=== PATIENT | male | born 1970 | race Caucasian/White ===

== ENCOUNTER 2022-04-03 17:48 | Inpatient (IN) | payer SELFPAY ==
[~2022-04-03] VITALS: Ht 180.3 cm; Wt 113.0 kg
--- NOTE | 2022-04-03 18:25 | ED Lower Extremity ---
General Stated Complaint: RT FOOT INFECTION Source: patient (TALKS NON-STOP AT GREAT LENGTH) History of Present Illness Date Seen by Provider: Apr 03, 2022 Time Seen by Provider: 18:10 Initial Comments PT ARRIVES VIA POV FROM [place] C/O WOUND TO RIGHT FOOT FOR THE LAST COUPLE OF MONTHS PT IS DIABETIC, ON ORAL MEDICATION, WITH HISTORY OF PERIPHERAL NEUROPATHY PT HAS NOT CHECKED HIS BLOOD SUGAR FOR "AWHILE NOW" --STATES HE HAD PNEUMONIA IN DECEMBER AND INTO JANUARY AND WAS ON PREDNISONE, AND SO HE STOPPED CHECKING HIS BLOOD SUGAR, "BECAUSE THAT PREDNISONE MADE IT GO TOO HIGH, SO I JUST QUIT CHECKING IT" PT ALSO HAS HISTORY OF HTN--TAKES LISINOPRIL 40 MG AND AMLODIPINE 10 MG HE HAS NOT TAKEN ANY OF HIS MEDICATIONS SINCE YESTERDAY MORNING--DOES NOT GIVE EXPLANATION TO WHY HE DIDN'T TAKE HIS MEDICATIONS HE ALSO STATES HE RAN OUT OF AMLODIPINE 2 WEEKS AGO, AND STARTED TAKING IT AGAIN THIS PAST TUESDAY. PT STATES HE LIVES IN [place], AND SEES DR. GALLARDO WITH [facility] HE WORKS IN [place] ALL WEEK AND SEES A DR. THERE ALSO HE STATES HE DID GO TO WOUND CARE IN [place] A COUPLE OF MONTHS AGO, AND IT WAS DOING BETTER, AND HAD NOT SEEN ANYONE FOR SEVERAL WEEKS THEN STATES "IT BROKE OPEN AGAIN" AFTER STEPPING ON A ROCK "A COUPLE OF WEEKS AGO" DID NOT SEEK CARE AGAIN UNTIL A WEEK AGO HE WENT TO [facility] IN [place] LAST TUESDAY, AND WAS GIVEN A SHOT OF ROCEPHIN AND GIVEN RX FOR LEVAQUIN X 7 DAYS. HE WAS ALSO GIVEN A TETANUS SHOT AT THAT TIME. HE DID NOT FOLLOW UP WITH ANYONE UNTIL TODAY STATES IT IS GETTING WORSE--WOUND IS LARGER, PAINFUL, DRAINING, AND HIS WHOLE FOOT IS RED AND SWOLLEN. HE WENT TO [facility] ER TODAY, BUT TOLD THERE WOULD BE A LONG WAIT, AND SO HE LEFT THERE WITHOUT BEING SEEN AND DROVE TO [place] AND WENT TO [facility], WHO SENT HIM HERE. HE STATES HE HAD FEVER OF 99 AT URGENT CARE--PT STATES HE WAS UNAWARE OF ANY FEVER. PT STATES HE HAD THE SAME PROBLEM WITH HIS LEFT FOOT SOMETIME LAST YEAR--ABOUT A YEAR AGO--IT HAS HEALED UP. PT HAS HAD COVID VACCINE X 2, NO FLU VACCINE. PCP: DR. GALLARDO WITH [facility]. ALSO SEES A DR IN [place], WHERE HE WORKS DURING THE WEEK. Allergies and Home Medications Allergies Coded Allergies: Sulfa (Sulfonamide Antibiotics) (Verified Allergy, Unknown, 04/03/22) doxycycline (Verified Allergy, Unknown, 04/03/22) Patient Home Medication List Home Medication List Reviewed: Yes Review of Systems Constitutional: see HPI EENTM: no symptoms reported Respiratory: no symptoms reported; No cough, No dyspnea on exertion Cardiovascular: no symptoms reported Gastrointestinal: no symptoms reported Genitourinary: no symptoms reported Musculoskeletal: see HPI Skin: see HPI Psychiatric/Neurological: See HPI, Pre-Existing Deficit (PERIPHERAL NEUROPATHY) Past [id number] Hx Patient Social History Tobacco Use?: No Smoking Status: Never a Smoker Smokeless Tobacco Frequency: Never a User Use of E-Cig and/or Vaping dev: No Use of E-Cig and/or Vaping Abraham: Never a User Substance use?: No Alcohol Use?: Yes Past Medical History Surgeries: Yes (SEE BELOW) Amputation, Orthopedic Respiratory: Yes Pneumonia Cardiac: Yes Hypertension Neurological: Yes Neuropathy Genitourinary: No Gastrointestinal: No Musculoskeletal: Yes (SKIN GRAFTS TO RIGHT HAND AND FOREARM; R 5TH FINGER AMPUTATED) Amputee Endocrine: Yes Diabetes, Non-Insulin dep HEENT: No (GLASSES) Cancer: No Psychosocial: No Integumentary: Yes (DIABETIC FOOT ULCERS; SKIN GRAFTS RIGHT HAND AND FOREARM. ) Blood Disorders: No Family Medical History SOCIAL HISTORY: -DENIES SMOKING -DENIES DRUG USE -USED TO DRINK ALCOHOL ON REGULAR BASIS, BUT FOR THE LAST 5 YEARS, NOW ONLY "OCCASIONALLY" DRINKS. 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 Physical Exam Vital Signs Vital Signs - First Documented 04/03/22 18:08 Temp 37.1 Pulse 122 Resp 20 B/P (MAP) 200/115 (143) Pulse Ox 98 O2 Delivery Room Air Capillary Refill : Height, Weight, BMI Height: '" Weight: lbs. oz. kg; BMI Method: General Appearance: WD/WN, no apparent distress, other (HAS A VERY LARGE BOTTLE OF WATER, THAT HE IS DRINKING FROM ON ARRIVAL TO ER. ) Neck: normal inspection Cardiovascular: normal peripheral pulses, no murmur, tachycardia (110-120) Respiratory: normal breath sounds, no respiratory distress, no accessory muscle use Gastrointestinal: non tender, soft Back: normal inspection, no CVA tenderness Legs: left leg normal inspection Ankles: left ankle normal inspection; right ankle swelling Feet: bilateral foot other (CALLOUS OVER LEFT FOOT--PLANTAR ASPECT OF FIRST MTP JOINT/BALL OF FOOT--NO SIGNS OF INFECTION OR SKIN BREAKDOWN AT THIS AREA. RIGHT FOOT--LARGE FULL THICKNESS ULCER TO PLANTAR ASPECT OF FOOT, AT FIRST AND SECOND MTP JOINT AREAS/BALL OF FOOT, WITH PURULENT DRAINAGE. THERE IS DIFFUSE MODERATE SWELLING AND ERYTHEMA TO ENTIRE FOOT UP TO RIGHT ANKLE. THERE ARE NO STREAKS NOTED. BOTH FEET ARE WARM AND WITH GOOD PEDAL PULSES AND GOOD CAPILLARY REFILL. THERE IS DECREASED SENSATION TO FINE TOUCH TO BOTH FEET--C/W REPORTED HISTORY OF PERIPHERAL NEUROPATHY. ) Neurologic/Tendon: normal motor functions, normal tendon functions, sensory deficit (DECREASED SENSATION TO FINE TOUCH TO BOTH FEET) Neurologic/Psychiatric: filleter II-XII nml as tested, alert, normal mood/affect, oriented x 3 Skin: warm/dry, other (RIGHT FOOT WOUND NOTED ABOVE. ) Progress/Results/Core Measures Results/Orders Lab Results Laboratory Tests Test 04/03/22 18:05 04/03/22 18:51 04/03/22 18:52 04/03/22 18:55 Range/Units White Blood Count 8.2 4.3-11.0 10^3/uL Red Blood Count 5.16 4.30-5.52 10^6/uL Hemoglobin 14.8 13.3-17.7 g/dL Hematocrit 43 40-54 % Mean Corpuscular Volume 83 80-99 fL Mean Corpuscular Hemoglobin 29 25-34 pg Mean Corpuscular Hemoglobin Concent 34 32-36 g/dL Red Cell Distribution Width 12.8 10.0-14.5 % Platelet Count 269 130-400 10^3/uL Mean Platelet Volume 10.0 9.0-12.2 fL Immature Granulocyte % (Auto) 0 % Neutrophils (%) (Auto) 72 42-75 % Lymphocytes (%) (Auto) 18 12-44 % Monocytes (%) (Auto) 8 0-12 % Eosinophils (%) (Auto) 2 0-10 % Basophils (%) (Auto) 1 0-10 % Neutrophils # (Auto) 5.8 1.8-7.8 10^3/uL Lymphocytes # (Auto) 1.5 1.0-4.0 10^3/uL Monocytes # (Auto) 0.7 0.0-1.0 10^3/uL Eosinophils # (Auto) 0.1 0.0-0.3 10^3/uL Basophils # (Auto) 0.0 0.0-0.1 10^3/uL Immature Granulocyte # (Auto) 0.0 0.0-0.1 10^3/uL Erythrocyte Sedimentation Rate 27 0-30 MM/HR Prothrombin Time 12.7 12.2-14.7 SEC INR Comment 0.9 0.8-1.4 Activated Partial Thromboplast Time 29 24-35 SEC D-Dimer 0.49 0.00-0.49 UG/ML Sodium Level 134 L 135-145 MMOL/L Potassium Level 3.6 3.6-5.0 MMOL/L Chloride Level 95 L 98-107 MMOL/L Carbon Dioxide Level 25 21-32 MMOL/L Anion Gap 14 5-14 MMOL/L Blood Urea Nitrogen 18 7-18 MG/DL Creatinine 1.20 0.60-1.30 MG/DL Estimat Glomerular Filtration Rate 72 BUN/Creatinine Ratio 15 Glucose Level 403 *H 70-105 MG/DL Lactic Acid Level 1.37 0.50-2.00 MMOL/L Calcium Level 10.2 H 8.5-10.1 MG/DL Corrected Calcium 10.0 8.5-10.1 MG/DL Magnesium Level 1.8 1.6-2.4 MG/DL Total Bilirubin 0.5 0.1-1.0 MG/DL Aspartate Amino Transf (AST/SGOT) 19 5-34 U/L Alanine Aminotransferase (ALT/SGPT) 21 0-55 U/L Alkaline Phosphatase 130 40-136 U/L Total Creatine Kinase 507 H 30-200 U/L Creatine Kinase MB 3.0 <6.6 NG/ML Myoglobin 91.5 10.0-92.0 NG/ML C-Reactive Protein High Sensitivity 10.52 H 0.00-0.50 MG/DL Total Protein 7.7 6.4-8.2 GM/DL Albumin 4.2 3.2-4.5 GM/DL Beta-Hydroxybutyrate (Chem panel) 0.18 0.00-0.27 MMOL/L Serum Alcohol < 10 <10 MG/DL Urine Color YELLOW Urine Clarity CLEAR Urine pH 6.0 5-9 Urine Specific [place] 1.015 L 1.016-1.022 Urine Protein TRACE H NEGATIVE Urine Glucose (UA) 3+ H NEGATIVE Urine Ketones NEGATIVE NEGATIVE Urine Nitrite NEGATIVE NEGATIVE Urine Bilirubin NEGATIVE NEGATIVE Urine Urobilinogen 0.2 < = 1.0 MG/DL Urine Leukocyte Esterase NEGATIVE NEGATIVE Urine RBC (Auto) 1+ H NEGATIVE Urine RBC 0-2 /HPF Urine WBC NONE /HPF Urine Squamous Epithelial Cells RARE /HPF Urine Crystals NONE /LPF Urine Bacteria NEGATIVE /HPF Urine Casts NONE /LPF Urine Mucus NEGATIVE /LPF Urine Culture Indicated NO Urine Opiates Screen NEGATIVE NEGATIVE Urine Oxycodone Screen NEGATIVE NEGATIVE Urine Methadone Screen NEGATIVE NEGATIVE Urine Propoxyphene Screen NEGATIVE NEGATIVE Urine Barbiturates Screen NEGATIVE NEGATIVE Ur Tricyclic Antidepressants Screen NEGATIVE NEGATIVE Urine Phencyclidine Screen NEGATIVE NEGATIVE Urine Amphetamines Screen NEGATIVE NEGATIVE Urine Methamphetamines Screen NEGATIVE NEGATIVE Urine Benzodiazepines Screen NEGATIVE NEGATIVE Urine Cocaine Screen NEGATIVE NEGATIVE Urine Cannabinoids Screen NEGATIVE NEGATIVE Influenza Type A (RT-PCR) Not Detected Not Detecte Influenza Type B (RT-PCR) Not Detected Not Detecte SARS-CoV-2 RNA (RT-PCR) Negative Not Detecte Glucometer 340 H 70-110 MG/DL My Orders Orders - JUNIOR VALERIO DO Accucheck Stat ONCE (04/03/22 18:20) Ed Iv/Invasive Line Start (04/03/22 18:20) Monitor-Rhythm Ecg Trace Only (04/03/22 18:20) Ct Extremity Lower Right Wo (04/03/22 18:20) Foot, Right, 3 View (04/03/22 18:20) Alcohol (04/03/22 18:20) Cbc With Automated Diff (04/03/22 18:20) Comprehensive Metabolic Panel (04/03/22 18:20) Creatine Kinase (04/03/22 18:20) Creatine Kinase Mb (04/03/22 18:20) Hs C Reactive Protein (04/03/22 18:20) Fibrin Degradation Products (04/03/22 18:20) Drug Screen Stat (Urine) (04/03/22 18:20) Lactic Acid Analyzer (04/03/22 18:20) Magnesium (04/03/22 18:20) Protime With Inr (04/03/22 18:20) Partial Thromboplastin Time (04/03/22 18:20) Ua Culture If Indicated (04/03/22 18:20) Blood Culture (04/03/22 18:20) Wound Culture (04/03/22 18:20) Erythrocyte Sedimentation Rate (04/03/22 18:20) Myoglobin Serum (04/03/22 18:20) Ed Iv/Invasive Line Start (04/03/22 18:20) Ns Iv 1000 Ml (Sodium Chloride 0.9%) (04/03/22 18:30) Covid 19 Inhouse Test (04/03/22 18:20) Sputum Culture (04/03/22 18:20) Urine Culture (04/03/22 18:20) Chest 1 View, Ap/Pa Only (04/03/22 18:20) Ed Iv/Invasive Line Start (04/03/22 18:20) Ed Iv/Invasive Line Start (04/03/22 18:20) Vital Signs Adult Sepsis Patie Q15M (04/03/22 18:20) O2 (04/03/22 18:20) Remove Rings In Anticipation O (04/03/22 18:20) Piperacillin Sodium/Tazobactam (Zosyn Vi (04/03/22 18:30) Vancomycin Injection (Vancomycin Injecti (04/03/22 18:30) Influenza A And B By Pcr (04/03/22 18:20) Isolation Central Supply Req (04/03/22 18:20) Beta Hydroxybutyrate (04/03/22 19:07) Hemoglobin A1c (04/03/22 19:07) Medications Given in ED Current Medications Medications Dose Ordered Sig/Jennifer Route Start Time Stop Time Status Last Admin Dose Admin Piperacillin Sod/ Tazobactam Sod 4.5 gm/Sodium Chloride 100 ml @ 200 mls/hr ONCE ONCE IV 04/03/22 18:30 04/03/22 18:59 DC 04/03/22 19:29 200 MLS/HR Vital Signs/I&O 04/03/22 18:08 Temp 37.1 Pulse 122 Resp 20 B/P (MAP) 200/115 (143) Pulse Ox 98 O2 Delivery Room Air Progress Progress Note : Progress Note SEPSIS PROTOCOL INITIATED COVID AND FLU TESTING DONE. WOUND CULTURE OBTAINED FROM RIGHT FOOT WOUND. VITALS ON ARRIVAL: HR 110'120, BP 200/115, RR 20, O2 SAT 98% ON ROOM AIR TEMP 37.1=98.8 ACCUCHECK ON ARRIVAL 340 GIVEN: -IV FLUIDS -ANTIBIOTICS -INSULIN FOCUS EXAM AT 1899: -SEPSIS SUSPECTED, WITH TACHCARDIA WITH HR 110-120 INITIALLY AND SOURCE OF INFECTION NO EVIDENCE OF SEVERE SEPSIS OR SEPTIC SHOCK HR AROUND 100 AT TIME OF ADMIT BP IS ACTUALLY HIGH ON ARRIVAL, IS GRADUALLY DOWN TO 167/92 AT TIME OF ADMIT, AND PT HAS NOT BEEN TAKING HIS BLOOD PRESSURE MEDICATION AT HOME. PT IS AFEBRILE HERE, WITH NORMAL WBC, NORMAL LACTIC ACID NO EVIDENCE OF DKA AT THIS TIME, HE CURRENTLY HAS NORMAL CO2 LEVEL, NORMAL ANION GAP, NORMAL LACTIC ACID, NO KETONES IN URINE, AND NORMAL BETA HYDROXYBUTYRATE. HGB A1C IS PENDING AT THIS TIME. NO EVIDENCE OF OSTEOMYELITIS OR DISCRETE ABSCESS ON CT SCAN. NO DETERIORATION IN PT'S CONDITION DURING ER STAY, AND PT VOICED NO COMPLAINTS FOR ENTIRE ER STAY NO PRIOR VISITS HERE REVIEWED ALL TEST RESULTS, NEED FOR ADMIT, AND PT IS AGREEABLE TO PLAN OF CARE. Diagnostic Imaging Comments PER RADIOLOGIST REPORTS AT 1904 CXR-- FINDINGS: The heart size, mediastinal configuration and pulmonary vascularity are within normal limits. There is no pleural effusion, pneumothorax or pneumonia. The osseous structures are unremarkable. IMPRESSION: No acute cardiopulmonary abnormality. RIGHT FOOT XRAY-- FINDINGS: The alignment is normal. There is no fracture or dislocation. Soft tissues are unremarkable. IMPRESSION: No focal abnormality in the right foot. CT RIGHT FOOT-- FINDINGS: The alignment is normal. There are mild degenerative changes. There is no fracture or dislocation. There is no lytic or sclerotic lesion. Specifically, there is no definitive CT evidence of osteomyelitis. Soft tissues are grossly unremarkable. IMPRESSION: No CT evidence of osteomyelitis. If there is high clinical concern for osteomyelitis, further evaluation with gadolinium-enhanced MRI should be considered. There is some questionable soft tissue swelling along the plantar aspect of the foot. Reviewed: Reviewed by Me Departure Communication (Admissions) 1909--SPOKE WITH DR. TORO, HOSPITALIST, ACCEPTS PT FOR ADMIT 1913--SPOKE WITH DR. COWAN FOR SURGICAL CONSULT--RE: POSSIBLE NEED FOR DEBRIDEMENT Impression Primary Impression: DIABETIC FOOT ULCER WITH CELLULITIS RIGHT FOOT Additional Impressions: POORLY CONTROLLED NON-INSULIN DEPENDENT DIABETES Poorly-controlled hypertension Non-compliance Peripheral neuropathy Sepsis Failure of outpatient treatment Disposition: ADMITTED INPATIENT Condition: Stable Admissions Decision to Admit Reason: Admit from ER (General) Decision to Admit/Date: Apr 03, 2022 Time/Decision to Admit Time: 19:10 Departure-Patient Inst. Referrals: NO,LOCAL PHYSICIAN (PCP/Family) Primary Care Physician JUNIOR VALERIO DO Apr 03, 2022 18:25
[2022-04-03] MEDS ORDERED: NS IV 1000 ML 1,000 ML IV SCH (18:30)
[2022-04-03] MEDS ORDERED: PIPERACILLIN SODIUM/TAZOBACTAM 4.5 GM in NS (IVPB) 100 ML IV ONE (18:30)
[2022-04-03 18:39] LABS: BASOPHILS % (AUTO) 1 % (0-10); EOSINOPHILS # (AUTO) 0.1 10^3/uL (0.0-0.3); EOSINOPHILS % (AUTO) 2 % (0-10); HEMATOCRIT 43 % (40-54); HEMOGLOBIN 14.8 g/dL (13.3-17.7); LYMPHOCYTES # (AUTO) 1.5 10^3/uL (1.0-4.0); LYMPHOCYTES % (AUTO) 18 % (12-44); MEAN CORPUSCULAR HEMOGLOBIN 29 pg (25-34); MEAN CORPUSCULAR HGB CONC 34 g/dL (32-36); MEAN CORPUSCULAR VOLUME 83 fL (80-99); MONOCYTES # (AUTO) 0.7 10^3/uL (0.0-1.0); MONOCYTES % (AUTO) 8 % (0-12); NEUTROPHILS # (AUTO) 5.8 10^3/uL (1.8-7.8); NEUTROPHILS % (AUTO) 72 % (42-75); PLATELET COUNT 269 10^3/uL (130-400); WHITE BLOOD COUNT 8.2 10^3/uL (4.3-11.0)
--- NOTE | 2022-04-03 18:55 | Diagnostic Imaging Report ---
INDICATION: Foot pain. FINDINGS: The heart size, mediastinal configuration and pulmonary vascularity are within normal limits. There is no pleural effusion, pneumothorax or pneumonia. The osseous structures are unremarkable. IMPRESSION: No acute cardiopulmonary abnormality. Dictated by: Dictated on workstation # [id number]
[2022-04-03 18:56] LABS: ALBUMIN 4.2 GM/DL (3.2-4.5); CHLORIDE 95 MMOL/L (98-107); FIBRIN DEGRADATION PRODUCTS 0.49 UG/ML (0.00-0.49); INR 0.9 (0.8-1.4); POTASSIUM 3.6 MMOL/L (3.6-5.0); PROTHROMBIN TIME PATIENT 12.7 SEC (12.2-14.7); SODIUM 134 MMOL/L (135-145)
--- NOTE | 2022-04-03 18:56 | Diagnostic Imaging Report ---
INDICATION: Foot pain. EXAMINATION: Three views were obtained. FINDINGS: The alignment is normal. There is no fracture or dislocation. Soft tissues are unremarkable. IMPRESSION: No focal abnormality in the right foot. Dictated by: Dictated on workstation # [id number]
[2022-04-03 18:57] LABS: CALCIUM 10.2 MG/DL (8.5-10.1)
[2022-04-03 18:59] LABS: TOTAL PROTEIN 7.7 GM/DL (6.4-8.2)
[2022-04-03 19:00] LABS: BILIRUBIN,TOTAL 0.5 MG/DL (0.1-1.0); CARBON DIOXIDE 25 MMOL/L (21-32)
[2022-04-03 19:02] LABS: ALKALINE PHOSPHATASE 130 U/L (40-136); GFR ESTIMATED 72
[2022-04-03 19:03] LABS: BILIRUBIN,URINE NEGATIVE (NEGATIVE); CLARITY,URINE CLEAR; COLOR,URINE YELLOW; GLUCOSE, URINE (UA) 3+ (NEGATIVE); KETONES,URINE NEGATIVE (NEGATIVE); LEUKOCYTE ESTERASE ,URINE NEGATIVE (NEGATIVE); NITRITE,URINE NEGATIVE (NEGATIVE); PROTEIN,URINE TRACE (NEGATIVE)
[2022-04-03 19:03] LABS: BUN/CREATININE RATIO 15
--- NOTE | 2022-04-03 19:03 | Diagnostic Imaging Report ---
PROCEDURE: CT right lower extremity without contrast. TECHNIQUE: Axially acquired CT was obtained through the right lower extremity without intravenous contrast. Coronal and sagittal reformations were also performed. Auto Exposure Controls were utilized during the CT exam to meet ALARA standards for radiation dose reduction. INDICATION: Diabetic foot ulcer. FINDINGS: The alignment is normal. There are mild degenerative changes. There is no fracture or dislocation. There is no lytic or sclerotic lesion. Specifically, there is no definitive CT evidence of osteomyelitis. Soft tissues are grossly unremarkable. IMPRESSION: No CT evidence of osteomyelitis. If there is high clinical concern for osteomyelitis, further evaluation with gadolinium-enhanced MRI should be considered. There is some questionable soft tissue swelling along the plantar aspect of the foot. Dictated by: Dictated on workstation # [id number]
[2022-04-03 19:04] LABS: GLUCOSE 403 MG/DL (70-105)
[2022-04-03 19:05] LABS: ALANINE AMINOTRANSFERASE 21 U/L (0-55)
[2022-04-03 19:06] LABS: CREATINE KINASE 507 U/L (30-200); MAGNESIUM 1.8 MG/DL (1.6-2.4)
[2022-04-03 19:09] LABS: ERYTHROCYTE SEDIMENTATION RATE 27 MM/HR (0-30)
[2022-04-03 19:10] LABS: BACTERIA,URINE NEGATIVE /HPF; RBC,URINE 0-2 /HPF; SQUAMOUS EPITHELIAL CELL,UR RARE /HPF
[2022-04-03 19:13] LABS: AMPHETAMINE SCREEN, URINE NEGATIVE (NEGATIVE); BARBITURATE SCREEN URINE NEGATIVE (NEGATIVE); BENZODIAZEPINES SCREEN URINE NEGATIVE (NEGATIVE); CANNABINOID SCREEN, URINE NEGATIVE (NEGATIVE); COCAINE SCREEN URINE NEGATIVE (NEGATIVE); METHADONE STAT NEGATIVE (NEGATIVE); OPIATE SCREEN URINE NEGATIVE (NEGATIVE); OXYCODONE STAT NEGATIVE (NEGATIVE); PROPOXYPHENE STAT NEGATIVE (NEGATIVE); TRICYCLIC ANTIDEPRESSANTS SCRE NEGATIVE (NEGATIVE)
[2022-04-03] MEDS ORDERED: inSUlin (REGULAR) HUMAN 1 UNIT/0.01 ML (CHARGE PER UNIT) IV ONE (19:30)
[2022-04-03 20:00] VITALS: BP 176/94
[2022-04-03] MEDS: VANCOMYCIN INJECTION 1,000 MG in NS (IVPB) 250 ML IV SCH ×2 (20:04→23:37)
--- NOTE | 2022-04-03 21:13 | Consultation - Surgery ---
CHARLINE BROOKS 04/03/222112: History of Present Illness History of Present Illness Patient Consulted On(ruth/time) 04/03/22 20:58 Date Seen by Provider: Apr 03, 2022 Time Seen by Provider: 08:20 History of Present Illness Mitchel Roca is a 52yo male whom presented to ED due to erythematous and edematous R. foot ulcer that has worsened in the last couple weeks. Pt visited Urgent Care and then was told to come to ED. Pt had associated pain secondary to edema on admissions, but since being admitted erythema, pain, and swelling has improved. Pt acquired a foot ulcer around last October and has been healing well until stepped on limestone rock about two weeks ago which reopened the wound. Since, pt has had drainage the past 7-8 days; Pt started Levaquin last Tuesday. Pt doesn't report any aggravating or alleviating factors. Allergies and Home Medications Allergies Coded Allergies: Sulfa (Sulfonamide Antibiotics) (Verified Allergy, Unknown, 04/03/22) doxycycline (Verified Allergy, Unknown, 04/03/22) metformin (Verified Adverse Reaction, Unknown, diarrhea, 04/04/22) Past Xguvnwg-Zzlwzl-Rchtin Hx Patient Social History Smoking Status: Former Smoker Type Used: Smokeless Tobacco Alcohol Use?: Yes Have you traveled recently?: No Surgeries History of Surgeries: Yes (SEE BELOW) Surgeries: Amputation, Orthopedic Respiratory History of Respiratory Disorde: Yes Respiratory Disorders: Pneumonia Cardiovascular History of Cardiac Disorders: Yes Cardiac Disorders: Hypertension Neurological History of Neurological Disord: Yes Neurological Disorders: Neuropathy Genitourinary History of Genitourinary Disor: No Gastrointestinal History of Gastrointestinal Di: No Musculoskeletal History of Musculoskeletal Dis: Yes (SKIN GRAFTS TO RIGHT HAND AND FOREARM; R 5TH FINGER AMPUTATED) Musculoskeletal Disorders: Amputee Endocrine History of Endocrine Disorders: Yes Endocrine Disorders: Diabetes, Non-Insulin dep HEENT History of HEENT Disorders: No (GLASSES) Cancer History of Cancer: No Psychosocial History of Psychiatric Problem: No Integumentary History of Skin or Integumenta: Yes (DIABETIC FOOT ULCERS; SKIN GRAFTS RIGHT HAND AND FOREARM. ) Blood Transfusions History of Blood Disorders: No Review of Systems-General Constitutional: No chills, No fever Respiratory: No cough, No short of breath Cardiovascular: No chest pain, No palpitations Gastrointestinal: No abdominal pain, No diarrhea, No nausea, No vomiting Skin: lesions (R. Foot Ulcer) Psychiatric/Neurological: Denies Numbness, Denies Paresthesia Physical Exam-General Problems Physical Exam Vital Signs Vital Signs - First Documented 04/03/22 18:08 Temp 37.1 Pulse 122 Resp 20 B/P (MAP) 200/115 (143) Pulse Ox 98 O2 Delivery Room Air Capillary Refill : Less Than 3 Seconds General Appearance: WD/WN, no apparent distress HEENT: PERRL/EOMI, pharynx normal Neck: non-tender, full range of motion, supple Respiratory: chest non-tender, lungs clear, normal breath sounds, no respiratory distress, no accessory muscle use Cardiovascular: regular rate, rhythm, no edema, no murmur Peripheral Pulses: 2+ Radial Pulses (R), 2+ Radial Pulses (L) Gastrointestinal: normal bowel sounds, non tender, soft Extremities: non-tender, normal inspection, no calf tenderness, pedal edema, other (Erythematous R. Diabetic Foot Ulcer; Surrounding Calus ) Neurologic/Psychiatric: alert, normal mood/affect, oriented x 3; No sensory deficit Skin: warm/dry Lymphatic: no adenopathy Data Review Labs Laboratory Tests 04/03/22 18:05: White Blood Count 8.2, Red Blood Count 5.16, Hemoglobin 14.8, Hematocrit 43, Mean Corpuscular Volume 83, Mean Corpuscular Hemoglobin 29, Mean Corpuscular Hemoglobin Concent 34, Red Cell Distribution Width 12.8, Platelet Count 269, Mean Platelet Volume 10.0, Immature Granulocyte % (Auto) 0, Neutrophils (%) (Auto) 72, Lymphocytes (%) (Auto) 18, Monocytes (%) (Auto) 8, Eosinophils (%) (Auto) 2, Basophils (%) (Auto) 1, Neutrophils # (Auto) 5.8, Lymphocytes # (Auto) 1.5, Monocytes # (Auto) 0.7, Eosinophils # (Auto) 0.1, Basophils # (Auto) 0.0, Immature Granulocyte # (Auto) 0.0, Erythrocyte Sedimentation Rate 27, Prothrombin Time 12.7, INR Comment 0.9, Activated Partial Thromboplast Time 29, D-Dimer 0.49, Sodium Level 134L, Potassium Level 3.6, Chloride Level 95L, Carbon Dioxide Level 25, Anion Gap 14, Blood Urea Nitrogen 18, Creatinine 1.20, Estimat Glomerular Filtration Rate 72, BUN/Creatinine Ratio 15, Glucose Level 403*H, Lactic Acid Level 1.37, Calcium Level 10.2H, Corrected Calcium 10.0, Magnesium Level 1.8, Total Bilirubin 0.5, Aspartate Amino Transf (AST/SGOT) 19, Alanine Aminotransferase (ALT/SGPT) 21, Alkaline Phosphatase 130, Total Creatine Kinase 507H, Creatine Kinase MB 3.0, Myoglobin 91.5, C-Reactive Protein High Sensitivity 10.52H, Total Protein 7.7, Albumin 4.2, Beta-Hydroxybutyrate (Chem panel) 0.18, Serum Alcohol < 10 04/03/22 18:51: Urine Color YELLOW, Urine Clarity CLEAR, Urine pH 6.0, Urine Specific [place] 1.015L, Urine Protein TRACEH, Urine Glucose (UA) 3+H, Urine Ketones NEGATIVE, Urine Nitrite NEGATIVE, Urine Bilirubin NEGATIVE, Urine Urobilinogen 0.2, Urine Leukocyte Esterase NEGATIVE, Urine RBC (Auto) 1+H, Urine RBC 0-2, Urine WBC NONE, Urine Squamous Epithelial Cells RARE, Urine Crystals NONE, Urine Bacteria NEGATIVE, Urine Casts NONE, Urine Mucus NEGATIVE, Urine Culture Indicated NO, Urine Opiates Screen NEGATIVE, Urine Oxycodone Screen NEGATIVE, Urine Methadone Screen NEGATIVE, Urine Propoxyphene Screen NEGATIVE, Urine Barbiturates Screen NEGATIVE, Ur Tricyclic Antidepressants Screen NEGATIVE, Urine Phencyclidine S creen NEGATIVE, Urine Amphetamines Screen NEGATIVE, Urine Methamphetamines Screen NEGATIVE, Urine Benzodiazepines Screen NEGATIVE, Urine Cocaine Screen NEGATIVE, Urine Cannabinoids Screen NEGATIVE 04/03/22 18:52: Influenza Type A (RT-PCR) Not Detected, Influenza Type B (RT-PCR) Not Detected, SARS-CoV-2 RNA (RT-PCR) Negative 04/03/22 18:55: Glucometer 340H Radiology Date of Exam:04/03/22 CT EXTREMITY LOWER RIGHT WO PROCEDURE: CT right lower extremity without contrast. TECHNIQUE: Axially acquired CT was obtained through the right lower extremity without intravenous contrast. Coronal and sagittal reformations were also performed. Auto Exposure Controls were utilized during the CT exam to meet ALARA standards for radiation dose reduction. INDICATION: Diabetic foot ulcer. FINDINGS: The alignment is normal. There are mild degenerative changes. There is no fracture or dislocation. There is no lytic or sclerotic lesion. Specifically, there is no definitive CT evidence of osteomyelitis. Soft tissues are grossly unremarkable. IMPRESSION: No CT evidence of osteomyelitis. If there is high clinical concern for osteomyelitis, further evaluation with gadolinium-enhanced MRI should be considered. There is some questionable soft tissue swelling along the plantar aspect of the foot. Date of Exam:04/03/22 FOOT, RIGHT, 3 VIEW INDICATION: Foot pain. EXAMINATION: Three views were obtained. FINDINGS: The alignment is normal. There is no fracture or dislocation. Soft tissues are unremarkable. IMPRESSION: No focal abnormality in the right foot. Date of Exam:04/03/22 CHEST 1 VIEW, AP/PA ONLY INDICATION: Foot pain. FINDINGS: The heart size, mediastinal configuration and pulmonary vascularity are within normal limits. There is no pleural effusion, pneumothorax or pneumonia. The osseous structures are unremarkable. IMPRESSION: No acute cardiopulmonary abnormality. Assessment/Plan Assessment/Plan Assessment/Plan R. Foot Ulcer Poorly Controlled Non-insulin dependent diabetes Poorly-controlled hypertension Non-compliance Peripheral neuropathy Sepsis Failure of outpatient treatment IV Abx CHO 45g Diet Wound Care Consult Ambulate as tolerated Monitor R. Foot Ulcer ALECIA COWAN DO 04/04/22 1148: History of Present Illness History of Present Illness History of Present Illness Consult requested for right foot ulcer by Dr. Byers. Patient is a 52 year old male who has had an ulcer to right foot since last October. It healed up with wound care. About 2 weeks ago he was walking and stepped on a limestone rock that reopened the area. Became infected and has had drainage for the last 7-8 days. He states he was started on Levaquin. Today he noticed more erythema was seen at urgent care and sent to hospital for further imaging. Patient states the erythema has already started going down and feeling better. Patient has x ray - no abnormality, and ct scan of the right lower extremity: No CT evidence of osteomyelitis. If there is high clinical concern for osteomyelitis, further evaluation with gadolinium-enhanced MRI should be considered. There is some questionable soft tissue swelling along the plantar aspect of the foot. Allergies and Home Medications Allergies Coded Allergies: Sulfa (Sulfonamide Antibiotics) (Verified Allergy, Unknown, 04/03/22) doxycycline (Verified Allergy, Unknown, 04/03/22) metformin (Verified Adverse Reaction, Unknown, diarrhea, 04/04/22) Patient Home Medication List Home Medication List Reviewed: Yes Past Dsckbom-Wqkihj-Ndovdt Hx Patient Social History Smoking Status: Former Smoker Type Used: Smokeless Tobacco Reviewed Nursing Assessment Reviewed/Agree w Nursing PMH: Yes Family Medical History Significant Family History: No Pertinent Family Hx Review of Systems-General Constitutional: No chills, No fever Respiratory: No cough, No short of breath Cardiovascular: No chest pain, No palpitations Gastrointestinal: No abdominal pain, No diarrhea, No nausea, No vomiting Skin: lesions (R. Foot Ulcer) Psychiatric/Neurological: Denies Numbness, Denies Paresthesia All Other Systems Reviewed Negative Unless Noted: Yes (Negative excepted noted.) Physical Exam-General Problems Physical Exam General Appearance: WD/WN, no apparent distress HEENT: PERRL/EOMI, normal ENT inspection Neck: non-tender, full range of motion Respiratory: chest non-tender, no respiratory distress, no accessory muscle use Cardiovascular: regular rate, rhythm, no JVD Gastrointestinal: non tender, soft Rectal: deferred Back: no CVA tenderness, no vertebral tenderness Extremities: non-tender, normal inspection, no calf tenderness, other (Erythematous R. Diabetic Foot Ulcer; Surrounding Calus ) Neurologic/Psychiatric: alert, normal mood/affect, oriented x 3 Skin: warm/dry Lymphatic: no adenopathy Assessment/Plan Assessment/Plan Assessment/Plan R. Foot Ulcer Poorly Controlled Non-insulin dependent diabetes hypertension Peripheral neuropathy Sepsis Failure of outpatient treatment IV Abx CHO 45g Diet Ambulate as tolerated Monitor R. Foot Ulcer Does not need debrided currently will continue to monitor Supervisory-Addendum Brief Verification & Attestation Participated in pt care: history, MDM, physical Personally performed: exam, history, MDM, supervision of care Care discussed with: Medical Student Procedures: n/a Results interpretation: Verified all documentation Verification and Attestation of Medical Student E/M Service A medical student performed and documented this service in my presence. I reviewed and verified all information documented by the medical student and made modifications to such information, when appropriate. I personally performed the physical exam and medical decision making. Alecia Cowan, Apr 04, 2022,11:53 CHARLINE BROOKS Apr 03, 2022 21:13 ALECIA COWAN DO Apr 04, 2022 11:48
[2022-04-03] MEDS ORDERED: KETOROLAC 30 MG/ML VIAL IV PRN (21:15)
[2022-04-03] MEDS ORDERED: ONDANSETRON 4 MG/2 ML (SDV) Z0FRAN IV PRN (21:15)
[2022-04-03] MEDS ORDERED: fentaNYL INJ 100 MCG/2 ML AMP IV PRN (21:15)
[2022-04-03] MEDS ORDERED: ACETAMINOPHEN 500 MG TAB (TYLENOL) PO PRN (21:15)
[2022-04-03] MEDS ORDERED: VANCOMYCIN INJECTION 1,000 MG in NS (IVPB) 250 ML IV ONE (23:30)
[2022-04-03 23:36] VITALS: BP 162/94
[2022-04-03] MEDS: NS IV 1000 ML 1,000 ML IV SCH (23:37)
[2022-04-04] MEDS: PIPERACILLIN SODIUM/TAZOBACTAM 4.5 GM in NS (IVPB) 100 ML IV SCH ×3 (01:35→17:05)
[2022-04-04 03:38] VITALS: BP 166/85
[2022-04-04] MEDS: NS IV 1000 ML 1,000 ML IV SCH ×4 (04:10→19:49)
[2022-04-04 06:07] LABS: BASOPHILS # (AUTO) 0.1 10^3/uL (0.0-0.1); BASOPHILS % (AUTO) 1 % (0-10); EOSINOPHILS # (AUTO) 0.2 10^3/uL (0.0-0.3); EOSINOPHILS % (AUTO) 3 % (0-10); HEMATOCRIT 40 % (40-54); HEMOGLOBIN 13.4 g/dL (13.3-17.7); LYMPHOCYTES # (AUTO) 1.8 10^3/uL (1.0-4.0); LYMPHOCYTES % (AUTO) 26 % (12-44); MEAN CORPUSCULAR HEMOGLOBIN 28 pg (25-34); MEAN CORPUSCULAR HGB CONC 34 g/dL (32-36); MEAN CORPUSCULAR VOLUME 83 fL (80-99); MEAN PLATELET VOLUME 10.1 fL (9.0-12.2); MONOCYTES # (AUTO) 0.6 10^3/uL (0.0-1.0); MONOCYTES % (AUTO) 9 % (0-12); NEUTROPHILS # (AUTO) 4.3 10^3/uL (1.8-7.8); NEUTROPHILS % (AUTO) 62 % (42-75); PLATELET COUNT 256 10^3/uL (130-400)
[2022-04-04] MEDS: inSUlin ASPART (NovoLOG) 1 UNIT/0.01 ML (CHARGE PER UNIT) SC SCH ×4 (06:15→21:35)
[2022-04-04 06:21] LABS: ALBUMIN 3.7 GM/DL (3.2-4.5)
[2022-04-04 06:23] LABS: CALCIUM 9.3 MG/DL (8.5-10.1)
[2022-04-04 06:24] LABS: TOTAL PROTEIN 6.7 GM/DL (6.4-8.2)
[2022-04-04 06:26] LABS: BILIRUBIN,TOTAL 0.4 MG/DL (0.1-1.0)
[2022-04-04 06:28] LABS: CREATININE SERUM 1.01 MG/DL (0.60-1.30)
[2022-04-04 07:15] VITALS: BP 165/89
[2022-04-04] MEDS: VANCOMYCIN 1250 MG/NS 250 ML IVPB IV SCH ×4 (08:06→19:55)
--- NOTE | 2022-04-04 08:57 | Progress Note - Surgery ---
CHARLINE BROOKS 04/04/22 0857: Subjective Date Seen by a Provider: Apr 04, 2022 Time Seen by a Provider: 07:30 Subjective/Events-last exam Pt was seen and interviewed today. Pt was doing well laying in bed ordering breakfast upon entering room in good spirit. Pt is tolerating his diet and states that he is w/o pain and doesn't have any complaints. Pt states that his ulcer is looking better than yesterday at admissions. Pt denies Fever, Chills, GUEVARA, chest pain, palpitations, SOB, cough, abdominal pain, N/V/D, and numbness. Review of Systems General: No Chills HEENT: No Head Aches Pulmonary: No Dyspnea, No Cough Cardiovascular: No: Chest Pain, Palpitations Gastrointestinal: No: Nausea, Vomiting, Diarrhea Neurological: No: Numbness Focused Exam Lactate Level 04/03/22 18:05: Lactic Acid Level 1.37 Objective Exam Vital Signs Date Time Temp Pulse Resp B/P (MAP) Pulse Ox O2 Delivery O2 Flow Rate FiO2 04/04/22 07:17 99 04/04/22 07:15 37.4 97 20 165/89 (114) 97 Room Air 04/04/22 03:38 37.2 97 18 166/85 (112) 94 Room Air 04/04/22 02:05 110 04/03/22 23:36 37.1 102 18 162/94 (116) 97 Room Air 04/03/22 21:22 Room Air 04/03/22 20:12 107 18 156/90 98 Room Air 04/03/22 20:00 37.3 107 20 176/94 (121) 98 Room Air 04/03/22 18:08 37.1 122 20 200/115 (143) 98 Room Air I & O 04/04/22 07:00 Intake Total 1000 ml Output Total 300 ml Balance 700 ml Capillary Refill : Less Than 3 Seconds General Appearance: No Apparent Distress, WD/WN HEENT: PERRL/EOMI, Pharynx Normal Neck: Non Tender, Supple Respiratory: Chest Non Tender, Lungs Clear, Normal Breath Sounds, No Accessory Muscle Use, No Respiratory Distress Cardiovascular: Regular Rate, Rhythm, No Murmur, Normal Peripheral Pulses Peripheral Pulses: 2+ Radial Pulses (R), 2+ Radial Pulses (L) Gastrointestinal: normal bowel sounds, non tender, soft Extremity: Non Tender, No Calf Tenderness, Pedal Edema (Improved; Minimal ), Other (Improved Erythema of R. Diabetic Foot Ulcer) Neurologic/Psychiatric: Alert, Oriented x3, No Motor/Sensory Deficits, Normal Mood/Affect Skin: Warm/Dry Lymphatic: No Adenopathy Results Lab Laboratory Tests 04/03/22 18:05: White Blood Count 8.2, Red Blood Count 5.16, Hemoglobin 14.8, Hematocrit 43, Mean Corpuscular Volume 83, Mean Corpuscular Hemoglobin 29, Mean Corpuscular Hemoglobin Concent 34, Red Cell Distribution Width 12.8, Platelet Count 269, Mean Platelet Volume 10.0, Immature Granulocyte % (Auto) 0, Neutrophils (%) (Auto) 72, Lymphocytes (%) (Auto) 18, Monocytes (%) (Auto) 8, Eosinophils (%) (Auto) 2, Basophils (%) (Auto) 1, Neutrophils # (Auto) 5.8, Lymphocytes # (Auto) 1.5, Monocytes # (Auto) 0.7, Eosinophils # (Auto) 0.1, Basophils # (Auto) 0.0, Immature Granulocyte # (Auto) 0.0, Erythrocyte Sedimentation Rate 27, Prothrombin Time 12.7, INR Comment 0.9, Activated Partial Thromboplast Time 29, D-Dimer 0.49, Sodium Level 134L, Potassium Level 3.6, Chloride Level 95L, Carbon Dioxide Level 25, Anion Gap 14, Blood Urea Nitrogen 18, Creatinine 1.20, Estimat Glomerular Filtration Rate 72, BUN/Creatinine Ratio 15, Glucose Level 403*H, Lactic Acid Level 1.37, Calcium Level 10.2H, Corrected Calcium 10.0, Magnesium Level 1.8, Total Bilirubin 0.5, Aspartate Amino Transf (AST/SGOT) 19, Alanine Am inotransferase (ALT/SGPT) 21, Alkaline Phosphatase 130, Total Creatine Kinase 507H, Creatine Kinase MB 3.0, Myoglobin 91.5, C-Reactive Protein High Sensitivity 10.52H, Total Protein 7.7, Albumin 4.2, Beta-Hydroxybutyrate (Chem panel) 0.18, Serum Alcohol < 10 04/03/22 18:51: Urine Color YELLOW, Urine Clarity CLEAR, Urine pH 6.0, Urine Specific [place] 1.015L, Urine Protein TRACEH, Urine Glucose (UA) 3+H, Urine Ketones NEGATIVE, Urine Nitrite NEGATIVE, Urine Bilirubin NEGATIVE, Urine Urobilinogen 0.2, Urine Leukocyte Esterase NEGATIVE, Urine RBC (Auto) 1+H, Urine RBC 0-2, Urine WBC NONE, Urine Squamous Epithelial Cells RARE, Urine Crystals NONE, Urine Bacteria NEGATIVE, Urine Casts NONE, Urine Mucus NEGATIVE, Urine Culture Indicated NO, Urine Opiates Screen NEGATIVE, Urine Oxycodone Screen NEGATIVE, Urine Methadone Screen NEGATIVE, Urine Propoxyphene Screen NEGATIVE, Urine Barbiturates Screen NEGATIVE, Ur Tricyclic Antidepressants Screen NEGATIVE, Urine Phencyclidine Screen NEGATIVE, Urine Amphetamines Screen NEGATIVE, Urine Methamphetamines Screen NEGATIVE, Urine Benzodiazepines Screen NEGATIVE, Urine Cocaine Screen NEGATIVE, Urine Cannabinoids Screen NEGATIVE 04/03/22 18:52: Influenza Type A (RT-PCR) Not Detected, Influenza Type B (RT-PCR) Not Detected, SARS-CoV-2 RNA (RT-PCR) Negative 04/03/22 18:55: Glucometer 340H 04/03/22 22:01: Glucometer 343H 04/04/22 05:37: White Blood Count 7.0, Red Blood Count 4.79, Hemoglobin 13.4, Hematocrit 40, Mean Corpuscular Volume 83, Mean Corpuscular Hemoglobin 28, Mean Corpuscular Hemoglobin Concent 34, Red Cell Distribution Width 12.7, Platelet Count 256, Mean Platelet Volume 10.1, Immature Granulocyte % (Auto) 0, Neutrophils (%) (Auto) 62, Lymphocytes (%) (Auto) 26, Monocytes (%) (Auto) 9, Eosinophils (%) (Auto) 3, Basophils (%) (Auto) 1, Neutrophils # (Auto) 4.3, Lymphocytes # (Auto) 1.8, Monocytes # (Auto) 0.6, Eosinophils # (Auto) 0.2, Basophils # (Auto) 0.1, Immature Granulocyte # (Auto) 0.0, Sodium Level 135, Potassium Level 4.0, Chloride Level 101, Carbon Dioxide Level 21, Anion Gap 13, Blood Urea Nitrogen 16, Creatinine 1.01, Estimat Glomerular Filtration Rate 88, BUN/Creatinine Ratio 16, Glucose Level 294H, Calcium Level 9.3, Corrected Calcium 9.5, Total Bilirubin 0.4, Aspartate Amino Transf (AST/SGOT) 17, Alanine Aminotransferase (ALT/SGPT) 18, Alkaline Phosphatase 112, Total Protein 6.7, Albumin 3.7 04/04/22 06:00: Glucometer 291H Assessment/Plan Assessment/Plan Assessment/Plan R. Diabetic Foot Ulcer Poorly Controlled Non-insulin dependent diabetes Poorly-controlled hypertension Peripheral neuropathy Sepsis Failure of outpatient treatment Continue IV Abx CHO 45g Diet Wound Care Consulted Ambulate as tolerated Continue Monitoring R. Foot Ulcer SAM BUTLER DO 04/04/22 1158: Subjective Subjective/Events-last exam Patient doing well. Right foot feeling better. Not having any pain. The erythema is less. Denies n/v fever sweats chills shortness of breath or chest pain. Objective Exam General Appearance: No Apparent Distress, WD/WN HEENT: PERRL/EOMI, Normal ENT Inspection Neck: Non Tender, Supple Respiratory: Chest Non Tender, No Accessory Muscle Use, No Respiratory Distress Cardiovascular: Regular Rate, Rhythm, No JVD Gastrointestinal: non tender, soft Extremity: Non Tender, No Calf Tenderness, Other (Improved Erythema of R. Diabetic Foot Ulcer) Neurologic/Psychiatric: Alert, Oriented x3, No Motor/Sensory Deficits, Normal Mood/Affect Skin: Warm/Dry, Erythema (minimal around right foot ulcer) Lymphatic: No Adenopathy Assessment/Plan Assessment/Plan Assessment/Plan R. Diabetic Foot Ulcer Poorly Controlled Non-insulin dependent diabetes hypertension Peripheral neuropathy Failure of outpatient treatment Continue IV Abx CHO 45g Diet Ambulate as tolerated Continue Monitoring R. Foot Ulcer Supervisory-Addendum Brief Verification & Attestation Participated in pt care: history, MDM, physical Personally performed: exam, history, MDM, supervision of care Care discussed with: Medical Student Procedures: n/a Results interpretation: Verified all documentation Verification and Attestation of Medical Student E/M Service A medical student performed and documented this service in my presence. I reviewed and verified all information documented by the medical student and made modifications to such information, when appropriate. I personally performed the physical exam and medical decision making. Sam Butler, Apr 04, 2022,11:58 CHARLINE BROOKS Apr 04, 2022 08:57 SAM BUTLER DO Apr 04, 2022 11:58
[2022-04-04] MEDS ORDERED: lisINopril 20 MG (PRINIVIL) TABLET PO NR (10:30)
[2022-04-04 11:16] VITALS: BP 141/83
[2022-04-04] MEDS: IBUPROFEN 600 MG (MOTRIN) TAB PO SCH ×2 (11:21→17:05)
--- NOTE | 2022-04-04 11:34 | History & Physical ---
TREVERSTALIN 04/04/22 1134: History of Present Illness History of Present Illness Reason for visit/HPI Patient is a 52-year-old male with a past history of HTN, non-insulin dependent T2DM, and peripheral neuropathy who presented to the ED on 04/03 with chief complaint of a worsening ulcer on his right foot. The patient states that the wound began back in November and that he had followed up with a wound care clinic in [place] where he works. He reports that the wound had healed and improved and he stopped following with the wound care clinic several weeks ago. However, 4 weeks ago he stepped on a rock and reopened the wound. Since then, he began to notice that the area was becoming more erythematous, swollen and painful, and that it had failry constant drainage. He was seen at [facility] urgent care in [place], [place] 1 week ago and given a shot of Rocephin and prescribed a course of levaquin which the patient finished. He states that the condition of his ulcer continued to worsen throughout the next week. Yesterday, he went to [facility] but was told that it would be a long wait, so he drove to [facility] where he was sent to [facility]. The patient reports that he used to check his sugars at home and would run in the 120s-130s in the AM, and 160s after a meal. He had a recent bout of pneumonia in December and January and reports that he has been on steroids until a few weeks ago; he stopped checking his sugars during this timeframe since they were consistently elevated. He reports that he had a similar wound on his left foot about a year ago that improved without needing medical attention. When patient is seen this morning, he is laying comfortably in bed with his girlfriend at the bedside. He reports that the swelling and erythema have improved significantly since admission. He reports that he had a very small amount of drainage on his sock this morning. Patient has a 1-2 cm ulcer on the plantar surface of the ball of right foot with surrounding erythema. There is currently no drainage and the area is nontender when palpated. Patient reports that he had a temperature of 99F when seen at urgent care, states has not had a subjective fever. The patient endorses having some mild pain this morning, but states that it is well controlled. Patient has no other complaints. Date of Admission Apr 03, 2022 at 19:10 Date Seen by a Provider: Apr 04, 2022 Time Seen by a Provider: 10:30 I consulted on this patient on 04/04/22 11:21 Attending Physician No,Local Physician Admitting Physician Admitting Physician: Gretel Byers MD Attending Physician: Gretel Byers MD Consult Allergies and Home Medications Allergies Coded Allergies: Sulfa (Sulfonamide Antibiotics) (Verified Allergy, Unknown, 04/03/22) doxycycline (Verified Allergy, Unknown, 04/03/22) metformin (Verified Adverse Reaction, Unknown, diarrhea, 04/04/22) Patient Home Medication List Home Medication List Reviewed: Yes Past Uhbhzrh-Lueavo-Tiueob Hx Patient Social History Employed/Student: employed Tobacco Use?: No Smoking Status: Former Smoker Smokeless type used: Chew Smokeless Tobacco Frequency: Current Someday User Use of E-Cig and/or Vaping dev: No Use of E-Cig and/or Vaping Abraham: Never a User Substance use?: No Alcohol Use?: No Pt feels they are or have been: No Immunizations Up To Date First/Initial COVID19 Vaccinat: 2020 Second COVID19 Vaccination Sinan: 2020 Tetanus Booster (TDap): Less Than 5 Years Current Status Advance Directives: No Communicates: Verbally Primary Language: Congolese Preferred Spoken Language: Congolese Is interpretation needed?: No Sensory deficits: Vision impairment Implanted or Applied Medical D: None Past Medical History Surgeries: Amputation, Orthopedic Pneumonia Hypertension Neuropathy Amputee Diabetes, Non-Insulin dep Blood Disorders: No Family Medical History Cardiovascular disease 19 FATHER Diabetes mellitus G8 BROTHER FH: breast cancer SOCIAL HISTORY: -DENIES SMOKING -DENIES DRUG USE -USED TO DRINK ALCOHOL ON REGULAR BASIS, BUT FOR THE LAST 5 YEARS, NOW ONLY "OCCASIONALLY" DRINKS. 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 Review of Systems Constitutional: No chills, No fever (reports had fever of 99 when seen at [facility] urgent care, no subjective fever), No weakness EENTM: No hearing loss, No blurred vision Respiratory: cough (States since recent pneumonia, reports improvement) Cardiovascular: No chest pain, No edema Gastrointestinal: No abdominal pain, No constipation, No diarrhea, No nausea, No vomiting Genitourinary: No dysuria, No hematuria Musculoskeletal: back pain (Chronic), joint pain (Chronic) Skin: see HPI, change in color (Erythema surrounding lesion), lesions (Plantar surface, ball of right foot) Psychiatric/Neurological: Denies Numbness, Denies Weakness; Other (Periphal neuropathy b/l) Physical Exam Vital Signs Vital Signs - First Documented 04/03/22 18:08 Temp 37.1 Pulse 122 Resp 20 B/P (MAP) 200/115 (143) Pulse Ox 98 O2 Delivery Room Air Capillary Refill : Less Than 3 Seconds Height, Weight, BMI Height: '" Weight: lbs. oz. kg; 34.66 BMI Method: General Appearance: No Apparent Distress, WD/WN HEENT: PERRL/EOMI, Pharynx Normal Neck: Non Tender, Supple Respiratory: No Accessory Muscle Use, No Respiratory Distress Cardiovascular: No Edema, No Murmur, Normal Peripheral Pulses, Tachycardia Gastrointestinal: Non Tender, Soft Rectal: Deferred Back: No Vertebral Tenderness Extremity: Normal Capillary Refill, Non Tender, No Pedal Edema, Other (decreased sensation b/l) Neurologic/Psychiatric: Alert, Oriented x3 Skin: Erythema (surrounding lesion, improving), Other (Ulcer, plantar surface of ball on right foot) Lymphatic: No Adenopathy (cervical) Assessment/Plan Assessment and Plan Diabetic foot ulcer with cellulitis Failed outpatient levaquin X-ray and CT of the foot negative for signs of osteomyelitis Currently on 4.5 g Zosyn Q8H IV and vancomycin trough 1250mg IV Q12H Wound culture obtained, awaiting results Surgery consulted, currently recommending conservative therapy Non-insulin dependent T2DM Glucose of 340 on admit, 291 this morning SSI with accuchecks Resume home dose of glyburide 4mg PO BID Hemoglobin A1C ordered HTN 200/115 on admit, has improved to 141/83 this morning Patient reports that home measurements normally around 130/70-80 Did not take any of his medications yesterday Restart home dose of lisinopril 40mg daily PO, consider adding home dose amlodipine 10mg PO daily Hx of non-compliance Admission Diagnosis Admission Status: Observation GRETEL BYERS MD 04/04/22 2001: Allergies and Home Medications Allergies Coded Allergies: Sulfa (Sulfonamide Antibiotics) (Verified Allergy, Unknown, 04/03/22) doxycycline (Verified Allergy, Unknown, 04/03/22) metformin (Verified Adverse Reaction, Unknown, diarrhea, 04/04/22) Past Czozidu-Sprldc-Mukkcw Hx Family Medical History Cardiovascular disease 19 FATHER Diabetes mellitus G8 BROTHER FH: breast cancer Supervisory-Addendum Brief Verification & Attestation Participated in pt care: history, MDM, physical Personally performed: exam, history, MDM, supervision of care Care discussed with: Medical Student Procedures: n/a Results interpretation: Verified all documentation Verification and Attestation of Medical Student E/M Service A medical student performed and documented this service in my presence. I reviewed and verified all information documented by the medical student and made modifications to such information, when appropriate. I personally performed the physical exam and medical decision making. Gretel Byers, Apr 04, 2022,20:01 STALIN PERERA Apr 04, 2022 11:34 GRETEL BYERS MD Apr 04, 2022 20:01
[2022-04-04] MEDS ORDERED: PANTOPRAZOLE 40 MG (PROTONIX) TAB PO NR (12:00)
[2022-04-04] MEDS ORDERED: fentaNYL INJ 100 MCG/2 ML AMP IV PRN (13:15)
[2022-04-04 15:14] VITALS: BP 141/84
[2022-04-04 19:15] VITALS: BP 162/92
[2022-04-05 00:33] VITALS: BP 136/69
[2022-04-05] MEDS: IBUPROFEN 600 MG (MOTRIN) TAB PO SCH ×3 (00:34→11:20)
[2022-04-05] MEDS: PIPERACILLIN SODIUM/TAZOBACTAM 4.5 GM in NS (IVPB) 100 ML IV SCH ×2 (01:56→10:01)
[2022-04-05] MEDS: NS IV 1000 ML 1,000 ML IV SCH ×2 (03:58→13:43)
[2022-04-05 04:00] VITALS: BP 132/79
[2022-04-05] MEDS: inSUlin ASPART (NovoLOG) 1 UNIT/0.01 ML (CHARGE PER UNIT) SC SCH ×2 (06:55→11:19)
[2022-04-05] MEDS ORDERED: TROUGH ORDER-PHARMACY XX NR (07:00)
[2022-04-05 07:52] VITALS: BP 158/91
--- NOTE | 2022-04-05 08:58 | Progress Note - Surgery ---
CHARLINE BROOKS 04/05/22 0858: Subjective Date Seen by a Provider: Apr 05, 2022 Subjective/Events-last exam Pt was laying in bed upon the interview. Pt states that he is doing well w/o any complaints. Pt is not currently in pain, and states that his R. foot ulcer is looking better than ever. Pt is ambulating well and is having about 2 normal bowel movements per day. Pt denies GUEVARA, cough, sob, abdominal pain, numbness and tingling, chest pain and palpitations, and N/V/D. Review of Systems General: No Chills HEENT: No Head Aches Pulmonary: No Dyspnea, No Cough Cardiovascular: No: Chest Pain, Palpitations Gastrointestinal: No: Nausea, Vomiting, Diarrhea Neurological: No: Numbness Focused Exam Lactate Level 04/03/22 18:05: Lactic Acid Level 1.37 Objective Exam Vital Signs Date Time Temp Pulse Resp B/P (MAP) Pulse Ox O2 Delivery O2 Flow Rate FiO2 04/05/22 07:52 36.7 97 18 158/91 (113) 93 Room Air 04/05/22 07:12 96 04/05/22 06:55 37.2 04/05/22 04:00 37.2 92 20 132/79 (96) 94 Room Air 04/05/22 01:00 95 04/05/22 00:33 37.4 96 18 136/69 (91) 96 Room Air 04/04/22 20:00 Room Air 04/04/22 19:15 36.9 90 18 162/92 (115) 96 Room Air 04/04/22 19:00 95 04/04/22 15:14 36.6 88 18 141/84 (103) 97 Room Air 04/04/22 13:02 89 04/04/22 11:16 36.8 87 18 141/83 (102) 96 Room Air I & O 04/05/22 07:00 Intake Total 3900 ml Balance 3900 ml Capillary Refill : Less Than 3 Seconds General Appearance: No Apparent Distress, WD/WN HEENT: PERRL/EOMI, Normal ENT Inspection Neck: Non Tender, Supple Respiratory: Chest Non Tender, No Accessory Muscle Use, No Respiratory Distress Cardiovascular: Regular Rate, Rhythm, No JVD Peripheral Pulses: 2+ Radial Pulses (R), 2+ Radial Pulses (L) Gastrointestinal: non tender, soft Extremity: Non Tender, No Calf Tenderness, Other (Minimal Erythema of R. Diabetic Foot Ulcer) Neurologic/Psychiatric: Alert, Oriented x3, No Motor/Sensory Deficits, Normal Mood/Affect Skin: Warm/Dry, Erythema (minimal around right foot ulcer) Lymphatic: No Adenopathy Results Lab Laboratory Tests 04/04/22 11:14: Glucometer 261H 04/04/22 15:16: Glucometer 214H 04/04/22 21:00: Glucometer 274H 04/05/22 06:51: Glucometer 300H Microbiology 04/03/22 Blood Culture - Preliminary, Resulted No growth 04/03/22 Urine Culture - Final, Complete NO GROWTH 04/03/22 Gram Stain, Resulted Pending 04/03/22 Wound Culture - Preliminary, Resulted Probable Staph Aureus Assessment/Plan Assessment/Plan Assessment/Plan R. Diabetic Foot Ulcer Poorly Controlled Non-insulin dependent diabetes hypertension Peripheral neuropathy Failure of outpatient treatment Continue IV Abx CHO 45g Diet Ambulate as tolerated Continue Monitoring R. Foot Ulcer I believe pt is okay for discharge from surgical standpoint; Outpatient follow up w/ PCP SAM BUTLER DO 04/05/22 2002: Subjective Subjective/Events-last exam Patient states he feels good. Not having any pain in right foot. No drainage. The erythema he states has resolved. No other complaints. Wanting to go home. Denies n/v fever sweats chills shortness of breath or chest pain. Objective Exam General Appearance: No Apparent Distress, WD/WN HEENT: PERRL/EOMI, Normal ENT Inspection Neck: Non Tender, Supple Respiratory: Chest Non Tender, No Accessory Muscle Use, No Respiratory Distress Cardiovascular: Regular Rate, Rhythm, No JVD Gastrointestinal: non tender, soft Extremity: Non Tender, No Calf Tenderness, Other (Minimal Erythema of R. Diabetic Foot Ulcer) Neurologic/Psychiatric: Alert, Oriented x3 Skin: Warm/Dry, Erythema (minimal around right foot ulcer, improved) Lymphatic: No Adenopathy Assessment/Plan Assessment/Plan Assessment/Plan R. Diabetic Foot Ulcer Poorly Controlled Non-insulin dependent diabetes hypertension Peripheral neuropathy Failure of outpatient treatment Continue Abx CHO 45g Diet Tight glucose control Ambulate as tolerated Continue Monitoring R. Foot Ulcer Vasche irrigate and bandage bid and prn WIll follow up with wound care in [place]. Supervisory-Addendum Brief Verification & Attestation Participated in pt care: history, MDM, physical Personally performed: exam, history, MDM, supervision of care Care discussed with: Medical Student Procedures: n/a Results interpretation: Verified all documentation Verification and Attestation of Medical Student E/M Service A medical student performed and documented this service in my presence. I reviewed and verified all information documented by the medical student and made modifications to such information, when appropriate. I personally performed the physical exam and medical decision making. Sam Butler, Apr 05, 2022,20:04 CHARLINE BROOKS Apr 05, 2022 08:58 SAM BUTLER DO Apr 05, 2022 20:02
[2022-04-05] MEDS ORDERED: lisINopril 20 MG (PRINIVIL) TABLET PO SCH (09:00)
[2022-04-05] MEDS ORDERED: PANTOPRAZOLE 40 MG (PROTONIX) TAB PO SCH (09:00)
[2022-04-05] MEDS ORDERED: SODI475I TOP (09:14)
[2022-04-05] MEDS ORDERED: VANCOMYCIN 1500 MG/NS 500 ML IVPB IV SCH ×2 (10:00)
[2022-04-05] MEDS ORDERED: LISI40TA9 PO (10:34)
[2022-04-05] MEDS ORDERED: AMLO-251 PO (10:35)
[2022-04-05] MEDS ORDERED: GLIM4TAB5 PO (10:35)
[2022-04-05] MEDS ORDERED: IBUP-2473 PO (10:37)
[2022-04-05] MEDS ORDERED: ALBU8.5H6 PO (10:38)
[2022-04-05] MEDS ORDERED: CHLO500T4 PO (10:40)
[2022-04-05 11:26] VITALS: BP 137/78
[2022-04-05] MEDS ORDERED: AMOX1TAB12 PO (11:48)
--- NOTE | 2022-04-05 12:38 | Wound Care Assessment ---
Wound Care Assessment Date Seen by Provider: Apr 05, 2022 Time Seen by Provider: 14:59 Chief Complaint Ulcer and pain to the right 1st metatarsal head HPI Pt is a 52 yo male with PMH significant for HTN and T2DM who presents to the ED on 04/03/2021 with complaint of pain and drainage from an open wound on the plantar surface of his right 1st metatarsal head. He states that he previously had a wound from this location which had healed, however 3weeks ago he stepped on a limestone rock and reopened the wound. He sought care from [facility] in [place] where he received antibiotics and was instructed to apply neosporin to the wound area. Pt states that shortly after his foot began to turn red in color and pain began to travel up his leg prompting him to seek further care. He describes the pain as sharp & shooting when the area is manipulated, but is otherwise non-painful at this time. He has a long h/o DM2 but was off medications recently following respiratory infection and prednisone use. He also notes that while his FSBS are usually well controlled, with this foot infection, levels have been quite high and he stopped checking as a result. FSBS during hospital stay in 200-300's. He has PCP's in both [place] and [place] due to his work and living situation. He has followed with wound care in the past in [place] and plans to return to [place] next week. CT scan reassuring for no roddy infection (plain films as well). He is to be discharged home with oral antibiotics. I do plan to write a script for silver alginate dressings for daily changes until Mitchel can get in with his prior wound care physician for follow up. I did also encourage him to get in with local PCP to adjust his diabetic medications as well. Past Medical History: Admits Diabetes Type II HTN Smoking Status: Former Smoker Recreational Drug Use: No Alcohol Use: Past History Other Social Hx Chewing tobacco use Family Hx: significant for father's of [place] at 52, mother with HTN and breast CA, Brother T2DM Review of Systems General: No Chills, No Night Sweats HEENT: No Head Aches Pulmonary: No Dyspnea, No Pleuritic Chest Pain Cardiovascular: No: Palpitations, Lt Headedness Gastrointestinal: No: Nausea, Vomiting, Abdominal Pain, Diarrhea Genitourinary: No Dysuria Musculoskeletal: No: neck pain, leg pain, foot pain Neurological: Numbness; No: Weakness, Change in speech Exam Vital Signs Date Time Temp Pulse Resp B/P (MAP) Pulse Ox O2 Delivery O2 Flow Rate FiO2 04/05/22 11:26 36.5 101 18 137/78 (97) 90 Room Air Capillary Refill : Less Than 3 Seconds General Appearance: WD/WN, no apparent distress, obese HEENT: PERRL/EOMI, other (hearing wnl) Neck: full range of motion Cardiovascular: normal peripheral pulses, no edema Respiratory: no respiratory distress, no accessory muscle use Extremities: normal range of motion, non-tender, normal capillary refill, pedal edema (1+), other (rt foot ulcer) Neurologic/Psychiatric: alert, normal mood/affect, oriented x 3 Skin: normal color, warm/dry Skin Problem Location: lower extremities (The right foot wound measures 2.1 x 2.3 x 0.4cm, the primary etiology appears to be a WG1 diabetic foot ulcer, secondary traumatic, the epithelization is none, there is no tunneling, sub- callus undermining up to 2mm is present from 10:00 to 12:00, there is scant sero-sanginous drainage, there is small granulation, large necrotic fat and slough, the margins show epibole with callus, there is some centralized depth to the wound which does not extend to bone) Skin Character: lesion Results Laboratory Tests 04/04/22 15:16: Glucometer 214H 04/04/22 21:00: Glucometer 274H 04/05/22 06:51: Glucometer 300H 04/05/22 08:25: Vancomycin Level Trough 7.8L 04/05/22 11:08: Glucometer 205H Microbiology 04/03/22 Blood Culture - Preliminary, Resulted No growth 04/03/22 Urine Culture - Final, Complete NO GROWTH 04/03/22 Gram Stain - Final, Resulted 04/03/22 Wound Culture - Preliminary, Resulted Staphylococcus aureus Microbiology 04/03/22 Blood Culture - Preliminary, Resulted No growth 04/03/22 Urine Culture - Final, Complete NO GROWTH 04/03/22 Blood Culture - Preliminary, Resulted No growth 04/03/22 Gram Stain - Final, Resulted 04/03/22 Wound Culture - Preliminary, Resulted Staphylococcus aureus Assessment/Plan/Dx Assessment: Diabetic foot ulcer-WG1 Cellulitis L. foot T2DM with hyperglycemia HTN Noncompliance with medications, accuchecks and diet MSSA on wound culture Plan: F/U with wound care in [facility] for weekly debridement and monitoring. Dressing change 1x/day Silver-alginate with gauze and roller gauze, secure with tape - cleanse using Vasche. Script provided to patient and advised to fill at [facility]. Continue PO Abx 2wks (amoxicillin is appropriate for MSSA) Defer DM2 and HTN to primary - counseled regarding importance of adequate blood sugar control in the setting of wound healing. Patient instructed to follow up with PCP this week (prior to return to [place]) Supervisory-Addendum Brief Verification & Attestation Participated in pt care: history, MDM, physical Personally performed: exam, history, MDM, supervision of care Care discussed with: Medical Student Procedures: n/a Results interpretation: Verified all documentation BRUNO Conway MD Apr 05, 2022 12:38 KEON RASCON MD Apr 05, 2022 15:06
[2022-04-05] MEDS ORDERED: HYPOCHLOROUS ACID/NaCl (VASHE) 250 ML IR SCH (21:00)
--- NOTE | 2022-04-06 13:20 | Physician Query Clarification ---
PQ-Uncertain Diagnosis Admission/Discharge Admission Date: Apr 03, 2022 at 19:10 Discharge Date: Apr 05, 2022 at 14:19 Dr. Byers, The medical record reflects the following clinical scenario: History/Risk Factors: DM foot ulcer, Rt foot cellulitis Clinical Findings: Lactic acid 1.37, WBC 8.2, T37.1, P 122, R 20, BP 200/115 Treatment: IV Piperacillin, IV Vancomycin Question: Is sepsis a clinically valid diagnosis? Sepsis was documented in the ER record and surgical consult with no further documentation in the medical record. Please document a response in Progress Note or Discharge Summary. 1. Yes, clinically valid, condition resolved. 2. No, condition ruled out. 3. Other, with explanation of clinical findings. 4. Undetermined, no explanation for clinical findings. PHYSICIAN RESPONSE Diagnosis clinically valid: No, conditon ruled out In responding to this query, please exercise your independent professional judgment. The purpose of this communication is to more accurately reflect the complexity of your patients condition. The fact that a question is asked does not imply that any particular answer is desired or expected. Thank you for your timely response to this clarification. Requestors name: Noé THIS PHYSICIAN QUERY FORM IS A PERMANENT PART OF THE MEDICAL RECORD NOÉ CAO Apr 06, 2022 13:20 GRETEL BYERS MD Apr 12, 2022 14:33
[2022-04-06] MEDS ORDERED: TROUGH ORDER-PHARMACY XX NR (21:00)
[2022-04-07] MEDS ORDERED: LNZ600T PO ×2 (17:21→18:05)
--- NOTE | 2022-04-07 18:05 | Discharge Summary ---
Discharge Summary Hospital Course Problems/Dx: (1) Diabetic foot infection Status: Acute (2) T2DM (type 2 diabetes mellitus) Status: Acute Qualifiers: Qualified Codes: E11.621 - Type 2 diabetes mellitus with foot ulcer; L97.509 - Non-pressure chronic ulcer of other part of unspecified foot with unspecified severity (3) Cellulitis of right foot Status: Acute (4) Obesity Status: Chronic (5) HTN (hypertension) Status: Chronic Hospital Course Date of Admission: Apr 03, 2022 at 19:10 Admission Diagnosis : T2DM with foot ulcer and cellulitis Family Physician/Provider: LalaLocal Physician Date of Discharge: 04/05/22 Discharge Diagnosis: T2DM with MRSA infected foot ulcer and cellulitis Hospital Course: Mitchel Roca is a 52 year old male with PMH HTN, T2DM, obesity, who was admitted with an infected diabetic foot ulcer. He also had some surrounding cellulitis. He was not septic. He was started on IV antibiotics. A wound culture was obtained. It was initially presumptive MSSA, but final results revealed MRSA. He was discharged on Augmentin, but was called and notified to transition to Linezolid. He is unable to take Bactrim due to sulfa allergy. Wound care was consulted and assisted with his care. He was given Vashe for continued wound care. He should follow up with his wound care specialists in [place]. He was discharged home in stable condition. Labs and Pending Lab Test: Microbiology 04/03/22 Blood Culture - Preliminary, Resulted No growth 04/03/22 Urine Culture - Final, Complete NO GROWTH 04/03/22 Gram Stain - Final, Complete 04/03/22 Wound Culture - Final, Complete Staphylococcus aureus Home Meds Active Linezolid 600 Mg Tablet 600 Mg PO BID 10 Days Vashe Wound Therapy Solution (Sodium Chlor/Hypochlorous Acid) 0.033 % Irrig.soln 475 Ml TOP BID 30 Days WASH FOOT ULCER TWICE DAILY WITH VASHE AND KEEP CLEAN AND OPEN TO AIR. FOLLOW UP WITH WOUND CLINIC IN [place] WHEN YOU RETURN. Reported Chlorzoxazone 500 Mg Tablet 500 Mg PO Q6H PRN Ventolin Hfa (Albuterol Sulfate) 90 Mcg Hfa.aer.ad 1 Puff PO Q6H PRN 1 PUFF = 90 MCG Ibuprofen 200 Mg Tablet 600 Mg PO BID PRN TAKES 3 (200MG) TABS Glimepiride 4 Mg Tablet 2 Mg PO BID TAKES 1/2 OF (4MG) TAB Amlodipine Besylate 10 Mg Tablet 10 Mg PO DAILY Lisinopril 40 Mg Tablet 40 Mg PO DAILY Assessment/Pt Instructions See instructions Discharge Planning: >30 minutes discharge planning Discharge Instructions Discharge Diet: ADA Diet Activity as Tolerated: Yes Consultations Surgery, Wound care Discharge Physical Examination Vital Signs Vital Signs Date Time Temp Pulse Resp B/P (MAP) Pulse Ox O2 Delivery O2 Flow Rate FiO2 04/05/22 11:26 36.5 101 18 137/78 (97) 90 Room Air General Appearance: No Apparent Distress, Obese Respiratory: Lungs Clear, No Respiratory Distress Cardiovascular: Regular Rate, Rhythm, No Murmur Gastrointestinal: Normal Bowel Sounds, Soft Extremity: Non Tender, No Pedal Edema Skin: Warm/Dry, Other (foot ulcer, no surrounding inflammation) Neurologic/Psychiatric: Alert, Normal Mood/Affect Allergies: Coded Allergies: Sulfa (Sulfonamide Antibiotics) (Verified Allergy, Unknown, 04/03/22) doxycycline (Verified Allergy, Unknown, 04/03/22) metformin (Verified Adverse Reaction, Unknown, diarrhea, 04/04/22) Discharge Summary Date of Admission Apr 03, 2022 at 19:10 Date of Discharge Apr 05, 2022 at 14:19 Discharge Date: Apr 05, 2022 Discharge Time: 14:19 Admission Diagnosis T2DM with foot ulcer and cellulitis Consults/Procedures Consulations Surgery, Wound care Discharge Diagnosis (1) Diabetic foot infection Status: Acute (2) T2DM (type 2 diabetes mellitus) Status: Acute Qualifiers: Qualified Codes: E11.621 - Type 2 diabetes mellitus with foot ulcer; L97.509 - Non-pressure chronic ulcer of other part of unspecified foot with unspecified severity (3) Cellulitis of right foot Status: Acute (4) HTN (hypertension) Status: Chronic (5) Obesity Status: Chronic TAMERA JOLLEY MD Apr 07, 2022 17:56
== END 2022-04-05 14:19 | disposition home or self-care (01) | DRG 638 ==
LOC: ER 17:53 → 4TH 19:10
PROVIDERS: ADMIT Family Medicine; ATTEND Internal Medicine
DX: E11.621 Type 2 diabetes mellitus with foot ulcer (principal); L03.115 Cellulitis of right lower limb; L97.519 Non-pressure chronic ulcer of other part of right foot with unspecified severity; A49.02 Methicillin resistant Staphylococcus aureus infection, unspecified site; E11.42 Type 2 diabetes mellitus with diabetic polyneuropathy; I10 Essential (primary) hypertension; Z79.84 Long term (current) use of oral hypoglycemic drugs; E11.65 Type 2 diabetes mellitus with hyperglycemia; Z91.199 Patient's noncompliance with other medical treatment and regimen due to unspecified reason; Z89.021 Acquired absence of right finger(s); Z87.891 Personal history of nicotine dependence; Z88.1 Allergy status to other antibiotic agents; Z88.2 Allergy status to sulfonamides; Z20.822 Contact with and (suspected) exposure to COVID-19; E66.9 Obesity, unspecified; Z68.34 Body mass index [BMI] 34.0-34.9, adult
CPT/HCPCS: 36415; 71045; 73630; 73700; 80053; 80202; 80306; 80320; 81000; 82010; 82550; 82553; 82947; 83036; 83605; 83735; 83874; 85025; 85379; 85610; 85652; 85730; 86141; 87040; 87070; 87077; 87088; 87186; 87205; 87636; 93041; 96365; 96375